=== PATIENT | female | born 1990 | race American Indian/Alaskan Native ===

== ENCOUNTER 2016-12-26 09:16 | Emergency (ER) | payer OTHER ==
[2016-12-26 09:38] VITALS: BP 109/80
--- NOTE | 2016-12-26 10:29 | XRay Report ---
LUMBAR SPINE RADIOGRAPHS: INDICATION: Tenderness. COMPARISON: None similar. FINDINGS: AP and lateral lumbar spine radiographs demonstrate preserved vertebral body stature, alignment and disc heights. Nonobstructive bowel gas pattern. IUD and a small right hemipelvic phlebolith incidentally noted. Normal bilateral SI joints. Clear visualized lung bases. Some extrinsic clothing artifacts. CONCLUSION: No acute lumbar radiographic abnormality. Thank you for the opportunity to participate in this patient's care.
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
== END 2016-12-26 12:35 | disposition home or self-care (01) ==
LOC: ED 09:16
DX: M79.1 Myalgia (principal); F17.200 Nicotine dependence, unspecified, uncomplicated; V49.59XA Passenger injured in collision with other motor vehicles in traffic accident, initial encounter; Y93.9 Activity, unspecified; Y92.9 Unspecified place or not applicable; Y99.9 Unspecified external cause status
CPT/HCPCS: 72100; 99283

== ENCOUNTER 2017-05-19 11:08 | Emergency (ER) | payer MEDICAID, OTHER ==
[2017-05-19 11:31] VITALS: BP 101/72
[2017-05-19] MEDS ORDERED: NACL 0.9% 1000 ML 1,000 ML IV ONE (11:33)
[2017-05-19 12:03] LABS: Basophils % (Auto) 0.3 % (0.0-1.8); Eosinophils % (Auto) 2.1 % (0.0-4.3); Hematocrit 41.4 % (30.3-42.9); Hemoglobin 13.5 gm/dl (10.1-14.3); Mean Corpuscular HGB Conc 33 % (30-34); Mean Corpuscular Hemoglobin 28 pg (28-32); Mean Corpuscular Volume 84 fl (79-97); Platelet Count 250 K/mm3 (140-440); Red Blood Count 4.93 M/mm3 (3.65-5.03); Red Cell Distribution Width 14.1 % (13.2-15.2); White Blood Count 10.1 K/mm3 (4.5-11.0)
[2017-05-19 12:21] LABS: Anion Gap 16 mmol/L; BUN/Creatinine Ratio 8.75; Blood Urea Nitrogen 7 mg/dL (7-17); Calcium 8.7 mg/dL (8.4-10.2); Carbon Dioxide 27 mmol/L (22-30); Chloride 99.6 mmol/L (98-107); Glucose 91 mg/dL (65-100); Potassium 3.7 mmol/L (3.6-5.0); Sodium 139 mmol/L (137-145)
[2017-05-19 12:57] LABS: Bacteria,Urine 2+ /HPF (Negative); Bilirubin,Urine NEG (Negative); Blood,Urine NEG (Negative); Ketones,Urine TR mg/dL (Negative); Leukocyte Esterase,Urine SM (Negative); Mucus,Urine 3+ /HPF; Nitrite,Urine NEG (Negative); Protein,Urine <15 mg/dL mg/dL (Negative)
== END 2017-05-19 11:34 | disposition left against medical advice (07) ==
LOC: ED 11:08
DX: R11.10 Vomiting, unspecified (principal); Z53.21 Procedure and treatment not carried out due to patient leaving prior to being seen by health care provider
CPT/HCPCS: 36415; 80048; 81001; 84703; 85025